=== PATIENT | male | born 2005 | race Caucasian/White ===

== ENCOUNTER 2023-10-01 10:27 | Outpatient (REF) | payer BC, SELFPAY ==
[2023-10-01 14:45] LABS: Influenza Virus A Antigen Negative; Influenza Virus B Antigen Negative; Internal Control Within Normal Limits; SARS-CoV-2 Ag NEGATIVE (NEGATIVE)
== END 2023-10-01 10:28 | disposition home or self-care (01) ==
LOC: LAB 10:27
PROVIDERS: PCP Family Medicine; Visit Provider Family Medicine
DX: R05.1 Acute cough (principal)
CPT/HCPCS: 87635; 87804; 87811

== ENCOUNTER 2024-11-25 13:32 | Emergency (ER) | payer BC, SELFPAY ==
[2024-11-25 14:05] VITALS: BP 123/78; PULSE 118; TEMP 37.1; O2SAT 96; BMI 30.3
[2024-11-25 14:32] VITALS: BMI 30.3
[2024-11-25] MEDS: ONDANSETRON PF 4 MG/2 ML VIAL IV (14:59)
[2024-11-25] MEDS: 0.9 % SODIUM CHLORIDE 1,000 ML 999 ML IV (14:59)
[2024-11-25 15:11] LABS: Hematocrit 51.7 % (42.0-54.0); Hemoglobin 17.7 g/dL (14.0-18.0); Mean Corpuscular HGB Conc 34.2 g/dL (29.9-35.2); Mean Corpuscular Hemoglobin 30.7 pg (25.9-34.0); Mean Corpuscular Volume 89.8 fL (80.0-94.0); Mean Platelet Volume 9.5 fL (9.5-13.5); Platelet Count 262 10^3/uL (150-450); Red Blood Count 5.76 10^6/uL (4.70-6.10); White Blood Count 18.5 10^3/uL (4.0-11.0)
[2024-11-25 15:21] LABS: Influenza Virus A Antigen Negative; Influenza Virus B Antigen Negative; Internal Control Within Normal Limits
[2024-11-25 15:36] LABS: Alanine Aminotransferase 28 U/L (16-63); Albumin Globulin Ratio 1.3; Albumin Level 4.9 g/dL (3.4-5.0); Alkaline Phosphatase 77 U/L (46-116); Anion Gap 16.6; Aspartate Amino Transferase 29 U/L (15-37); Bilirubin Total 1.4 mg/dL (0.2-1.0); Calcium 9.7 mg/dL (8.5-10.1); Carbon Dioxide 23.9 mmol/L (21.0-32.0); Chloride 100 mmol/L (98-107); Estimated GFR (African America >60 (>=60 mL/min/1.73m^2); Estimated GFR (Non-African Ame >60 (>=60 mL/min/1.73m^2); Globulin 3.8 g/dL; Glucose 113 mg/dL (74-106); Potassium 4.5 mmol/L (3.5-5.1); Sodium 136 mmol/L (136-145); Total Protein 8.7 g/dL (6.4-8.2)
[2024-11-25 15:50] LABS: Lymphocytes Absolute Manual 0.55 10^3/uL (1.20-3.80); Monocytes Absolute Manual 0.37 10^3/uL (0.30-0.80); Segmented Neut Absolute Manual 17.57 10^3/uL (1.4-6.5)
--- NOTE | 2024-11-25 16:04 | ED_ITS ---
Documented by User: Brittanie Clark 11/25/24 16:08 HPI HPI - General Adult General Chief complaint: Nausea/Vomiting/Diarrhea Stated complaint: VOMITING, DIARRHEA Time Seen by Provider: 11/25/24 14:43 Mode of arrival: walk-in Limitations: no limitations History of Present Illness HPI narrative: 18-year-old male presents here with chief complaint nausea vomiting diarrhea. He states he said diarrhea throughout the day today when he drinks water goes right through him. He denies any fevers or chills just states he has had abdominal cramping. Denies a known history of diverticulitis. He states he is generally healthy. He complains of abdominal cramping and not feeling well states started this morning. Patient does not appear toxic, he is afebrile Related Data Home Medications ?Medication ?Instructions ?Recorded ?Confirmed pantoprazole 40 mg tablet,delayed 40 mg PO QDAY 11/25/24 11/25/24 release Previous Rx's ?Medication ?Instructions ?Recorded ondansetron 4 mg disintegrating 4 mg PO DAILY PRN nausea and 11/25/24 tablet vomiting 4 days #10 tabs Allergies Allergy/AdvReac Type Severity Reaction Status Date / Time No Known Drug Allergies Allergy Verified 11/25/24 14:05 Opioid HPI Opioid Management Most Recent Opioid Data: No Data to Display Review of Systems ROS Narrative All Systems are negative except as noted/marked.All systems reviewed and otherwise negative PFSH PFSH Social History Little interest or pleasure in doing things: not at all Feeling down, depressed, or hopeless: not at all Exam Narrative Exam Narrative: Nurses note and vital signs reviewed and patient is not hypoxic. General: The patient appears well and in no apparent distress. Patient is resting comfortably on cart. Skin: Warm, dry, no pallor noted. There is no rash noted. Head: Normocephalic, atraumatic Eye: Normal conjunctiva, no drainage, EOMI. PERRL Ears, Nose, Mouth, and Throat: oral mucosa is moist. Nares patent. Mouth without vesicles. Ear canals patent. Tm's without Erythema Cardiovascular: Regular Rate and Rhythm Respiratory: Patient is in no distress, no accessory muscle use, lungs are clear to auscultation, no wheezing, rales or rhonchi Back: non-tender, no CVA tenderness bilaterally to percussion. GI: Normal bowel sounds, no tenderness to palpation, no masses appreciated. No rebound, guarding, or rigidity noted. Musculoskeletal: The patient has no evidence of calf tenderness, no pitting edema, symmetrical pulses noted bilaterally Neurological: A&O x4, normal speech Psychiatric: Cooperative Constitutional Vital Signs, click to edit/add: Last Vital Signs Temp 98.7 F 11/25/24 14:05 Pulse 118 H 11/25/24 14:05 Resp 16 11/25/24 14:05 BP 123/78 11/25/24 14:05 Pulse Ox 96 11/25/24 14:05 O2 Del Method Room Air 11/25/24 14:05 Course Vital Signs Vital signs: Vital Signs Temperature 98.7 F 11/25/24 14:05 Pulse Rate 118 H 11/25/24 14:05 Respiratory Rate 16 11/25/24 14:05 Blood Pressure 123/78 11/25/24 14:05 Pulse Oximetry 96 11/25/24 14:05 Oxygen Delivery Method Room Air 11/25/24 14:05 Temperature 98.7 F 11/25/24 14:05 Pulse Rate 118 H 11/25/24 14:05 Respiratory Rate 16 11/25/24 14:05 Blood Pressure 123/78 11/25/24 14:05 Pulse Oximetry 96 11/25/24 14:05 Oxygen Delivery Method Room Air 11/25/24 14:05 Medical Decision Making MDM Narrative Medical decision making narrative: 18-year-old male presents here with chief complaint nausea vomiting diarrhea. He states he said diarrhea throughout the day today when he drinks water goes right through him. He denies any fevers or chills just states he has had abdominal cramping. Denies a known history of diverticulitis. He states he is generally healthy. He complains of abdominal cramping and not feeling well states started this morning. Patient does not appear toxic, he is afebrile Upon arrival to the emergency room IV was established blood work was drawn patient was given IV fluids and Zofran. Liter of fluids was given and patient states she feels much better denies any more abdominal cramping. Patient has no pain to palpation of the abdomen. He does have an elevated white cell count which I do believe is due to the gastroenteritis, nausea vomiting he has been experiencing and diarrhea at home. He has had no recent travel or trauma. His abdomen is soft nontender at this time. We did discuss reasons to return to the emergency room including but not limited to worsening symptoms increased fevers chills or difficulty with urination. Patient agrees with plan of care he has no pain to palpation at this time discharged home to nausea vomit diarrhea. Differential Diagnosis Differential Diagnosis: Nausea, vomiting, diarrhea, appendicitis, influenza, Medical Records Medical records reviewed: Yes I reviewed the patient's medical records Lab Data Lab results reviewed: Yes I reviewed the patient's lab results Labs: Lab Results 11/25/24 11/25/24 Range/Units 14:54 15:05 WBC 18.5 H (4.0-11.0) 10^3/uL RBC 5.76 (4.70-6.10) 10^6/uL Hgb 17.7 (14.0-18.0) g/dL Hct 51.7 (42.0-54.0) % MCV 89.8 (80.0-94.0) fL MCH 30.7 (25.9-34.0) pg MCHC 34.2 (29.9-35.2) g/dL RDW 12.0 (11.0-15.0) % Plt Count 262 (150-450) 10^3/uL MPV 9.5 (9.5-13.5) fL Seg Neuts % (Manual) 95.0 H (43.0-75.0) Lymphocytes % (Manual) 3.0 L (20.5-60.0) % Monocytes % (Manual) 2.0 (1.7-12.0) % Eosinophils % (Manual) 0.0 L (0.9-7.0) % Basophils % (Manual) 0.0 L (0.2-2.0) % Neutrophils # (Manual) 17.57 H (1.4-6.5) 10^3/uL Lymphocytes # (Manual) 0.55 L (1.20-3.80) 10^3/uL Monocytes # (Manual) 0.37 (0.30-0.80) 10^3/uL Eosinophils # (Manual) 0.00 (0.00-0.70) 10^3/uL Basophils # (Manual) 0.00 (0.00-0.10) 10^3/uL Sodium 136 (136-145) mmol/L Potassium 4.5 (3.5-5.1) mmol/L Chloride 100 (98-107) mmol/L Carbon Dioxide 23.9 (21.0-32.0) mmol/L Anion Gap 16.6 BUN 16.0 (7.0-18.0) mg/dL Creatinine 1.00 (0.70-1.30) mg/dL Est GFR ( Amer) >60 (>=60 mL/min/1.73m^2) Est GFR (Non-Af Amer) >60 (>=60 mL/min/1.73m^2) BUN/Creatinine Ratio 16.0 Glucose 113 H (74-106) mg/dL Calcium 9.7 (8.5-10.1) mg/dL Total Bilirubin 1.4 H (0.2-1.0) mg/dL AST 29 (15-37) U/L ALT 28 (16-63) U/L Alkaline Phosphatase 77 (46-116) U/L Total Protein 8.7 H (6.4-8.2) g/dL Albumin 4.9 (3.4-5.0) g/dL Globulin 3.8 g/dL Albumin/Globulin Ratio 1.3 Influenza Type A Ag Negative Influenza Type B Ag Negative Discharge Plan Discharge Chief Complaint: Nausea/Vomiting/Diarrhea Clinical Impression: Gastroenteritis Patient Disposition: Home, Self-Care Time of Disposition Decision: 16:02 Condition: Good Prescriptions / Home Meds: New ondansetron 4 mg tablet,disintegrating 4 mg PO DAILY PRN (Reason: nausea and vomiting) 4 Days Qty: 10 0RF No Action pantoprazole 40 mg tablet,delayed release (DR/EC) 40 mg PO QDAY Print Language: Guatemalan Instructions: Gastroenteritis (ED) Referrals: Fernie Trevizo MD [Primary Care Provider] - 1 week Discharge Date/Time: 11/25/24 16:09 Documented by User: Amari Whitehead MD 11/25/24 20:32 HPI HPI - General Adult General Chief complaint: Nausea/Vomiting/Diarrhea Stated complaint: VOMITING, DIARRHEA Time Seen by Provider: 11/25/24 14:43 Related Data Home Medications ?Medication ?Instructions ?Recorded ?Confirmed pantoprazole 40 mg tablet,delayed 40 mg PO QDAY 11/25/24 11/25/24 release Previous Rx's ?Medication ?Instructions ?Recorded ondansetron 4 mg disintegrating 4 mg PO DAILY PRN nausea and 11/25/24 tablet vomiting 4 days #10 tabs Allergies Allergy/AdvReac Type Severity Reaction Status Date / Time No Known Drug Allergies Allergy Verified 11/25/24 14:05 Opioid HPI Opioid Management Most Recent Opioid Data: No Data to Display PFSH PFSH Social History Little interest or pleasure in doing things: not at all Feeling down, depressed, or hopeless: not at all Exam Constitutional Vital Signs, click to edit/add: Last Vital Signs Temp 98.7 F 11/25/24 14:05 Pulse 118 H 11/25/24 14:05 Resp 16 11/25/24 14:05 BP 123/78 11/25/24 14:05 Pulse Ox 96 11/25/24 14:05 O2 Del Method Room Air 11/25/24 14:05 Course Vital Signs Vital signs: Vital Signs Temperature 98.7 F 11/25/24 14:05 Pulse Rate 118 H 11/25/24 14:05 Respiratory Rate 16 11/25/24 14:05 Blood Pressure 123/78 11/25/24 14:05 Pulse Oximetry 96 11/25/24 14:05 Oxygen Delivery Method Room Air 11/25/24 14:05 Temperature 98.7 F 11/25/24 14:05 Pulse Rate 118 H 11/25/24 14:05 Respiratory Rate 16 11/25/24 14:05 Blood Pressure 123/78 11/25/24 14:05 Pulse Oximetry 96 11/25/24 14:05 Oxygen Delivery Method Room Air 11/25/24 14:05 Medical Decision Making MDM Narrative Medical decision making narrative: 18-year-old male presents here with chief complaint nausea vomiting diarrhea. He states he said diarrhea throughout the day today when he drinks water goes right through him. He denies any fevers or chills just states he has had abdominal cramping. Denies a known history of diverticulitis. He states he is generally healthy. He complains of abdominal cramping and not feeling well states started this morning. Patient does not appear toxic, he is afebrile Upon arrival to the emergency room IV was established blood work was drawn patient was given IV fluids and Zofran. Liter of fluids was given and patient states she feels much better denies any more abdominal cramping. Patient has no pain to palpation of the abdomen. He does have an elevated white cell count which I do believe is due to the gastroenteritis, nausea vomiting he has been experiencing and diarrhea at home. He has had no recent travel or trauma. His abdomen is soft nontender at this time. We did discuss reasons to return to the emergency room including but not limited to worsening symptoms increased fevers chills or difficulty with urination. Patient agrees with plan of care he has no pain to palpation at this time discharged home to nausea vomit diarrhea. I, Dr Whitehead, have reviewed the above progress note and course of action in the ER; agree with the above. I have personally seen and evaluated this patient, gone over history and physical, and discussed disposition and treatment plan with the patient. Reassessment of patient's abdomen was done by Dr. Whitehead at discharge. Abdomen is soft, obese, no guarding, rebound, rigidity. No peritoneal signs. No flank pain. Abdomen is very benign. Patient looks well. Patient states he feels significantly better. Patient is able to tolerate liquids. Patient feels significant better after IV fluids and IV medication. Patient is very thankful. Lab Data Labs: Lab Results 11/25/24 11/25/24 Range/Units 14:54 15:05 WBC 18.5 H (4.0-11.0) 10^3/uL RBC 5.76 (4.70-6.10) 10^6/uL Hgb 17.7 (14.0-18.0) g/dL Hct 51.7 (42.0-54.0) % MCV 89.8 (80.0-94.0) fL MCH 30.7 (25.9-34.0) pg MCHC 34.2 (29.9-35.2) g/dL RDW 12.0 (11.0-15.0) % Plt Count 262 (150-450) 10^3/uL MPV 9.5 (9.5-13.5) fL Seg Neuts % (Manual) 95.0 H (43.0-75.0) Lymphocytes % (Manual) 3.0 L (20.5-60.0) % Monocytes % (Manual) 2.0 (1.7-12.0) % Eosinophils % (Manual) 0.0 L (0.9-7.0) % Basophils % (Manual) 0.0 L (0.2-2.0) % Neutrophils # (Manual) 17.57 H (1.4-6.5) 10^3/uL Lymphocytes # (Manual) 0.55 L (1.20-3.80) 10^3/uL Monocytes # (Manual) 0.37 (0.30-0.80) 10^3/uL Eosinophils # (Manual) 0.00 (0.00-0.70) 10^3/uL Basophils # (Manual) 0.00 (0.00-0.10) 10^3/uL Sodium 136 (136-145) mmol/L Potassium 4.5 (3.5-5.1) mmol/L Chloride 100 (98-107) mmol/L Carbon Dioxide 23.9 (21.0-32.0) mmol/L Anion Gap 16.6 BUN 16.0 (7.0-18.0) mg/dL Creatinine 1.00 (0.70-1.30) mg/dL Est GFR ( Amer) >60 (>=60 mL/min/1.73m^2) Est GFR (Non-Af Amer) >60 (>=60 mL/min/1.73m^2) BUN/Creatinine Ratio 16.0 Glucose 113 H (74-106) mg/dL Calcium 9.7 (8.5-10.1) mg/dL Total Bilirubin 1.4 H (0.2-1.0) mg/dL AST 29 (15-37) U/L ALT 28 (16-63) U/L Alkaline Phosphatase 77 (46-116) U/L Total Protein 8.7 H (6.4-8.2) g/dL Albumin 4.9 (3.4-5.0) g/dL Globulin 3.8 g/dL Albumin/Globulin Ratio 1.3 Influenza Type A Ag Negative Influenza Type B Ag Negative Discharge Plan Discharge Chief Complaint: Nausea/Vomiting/Diarrhea Clinical Impression: Gastroenteritis Patient Disposition: Home, Self-Care Time of Disposition Decision: 16:02 Condition: Good Prescriptions / Home Meds: New ondansetron 4 mg tablet,disintegrating 4 mg PO DAILY PRN (Reason: nausea and vomiting) 4 Days Qty: 10 0RF No Action pantoprazole 40 mg tablet,delayed release (DR/EC) 40 mg PO QDAY Print Language: Guatemalan Instructions: Gastroenteritis (ED) Referrals: Fernie Trevizo MD [Primary Care Provider] - 1 week Discharge Date/Time: 11/25/24 16:09
== END 2024-11-25 16:09 | disposition home or self-care (01) ==
PROVIDERS: Physician Assistant; Emergency Provider Emergency Medicine; PCP Family Medicine
DX: K52.9 Noninfective gastroenteritis and colitis, unspecified (principal)
CPT/HCPCS: 36415; 80053; 85007; 85027; 87804; 96361; 96374; 99284; J2405